=== PATIENT | female | born 2000 | race Caucasian/White ===

== ENCOUNTER 2018-11-04 18:00 | Emergency (ER) | payer SELFPAY ==
[~2018-11-04] VITALS: Ht 165.1 cm; Wt 86.2 kg
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
[2018-11-04 18:28] VITALS: BP 119/74
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
[2018-11-04] MEDS ORDERED: NAPROXEN500 M2 ORAL (18:46)
[2018-11-04] MEDS ORDERED: ROBAXIN500 MG PO (18:46)
[2018-11-04 18:56] VITALS: BP 119/74
--- NOTE | 2018-11-04 18:56 | NUR ---
ER DISCHARGE NOTE: Patient is cleared to be discharged per ERMD, pt is aox4, on room air, with stable vital signs. pt was given dc and prescription instructions, pt was able to verbalize understanding, pt id band removed. pt is able to ambulate with steady gait. pt took all belongings.
== END 2018-11-04 18:56 | disposition home or self-care (01) ==
LOC: EMR 18:43
DX: S06.0X9A Concussion with loss of consciousness of unspecified duration, initial encounter (principal); S46.912A Strain of unspecified muscle, fascia and tendon at shoulder and upper arm level, left arm, initial encounter; V43.62XA Car passenger injured in collision with other type car in traffic accident, initial encounter; Y92.410 Unspecified street and highway as the place of occurrence of the external cause
CPT/HCPCS: 99282